=== PATIENT | female | born 1955 | race Caucasian/White ===

== ENCOUNTER 2016-08-02 11:46 | Emergency (ER) | payer SELFPAY ==
[~2016-08-02] VITALS: Wt 59.0 kg
[~2016-08-02 11:46] MED LIST: CALC0.5C4 PO; NAPR-260 PO; NAPR-688 PO; THYR120T PO; THYR60TA PO
== END 2016-08-02 17:50 | disposition left against medical advice (07) ==
LOC: FTE 11:46 → E/R 17:50
DX: Z53.21 Procedure and treatment not carried out due to patient leaving prior to being seen by health care provider (principal)

== ENCOUNTER 2016-08-10 16:16 | Emergency (ER) | payer OTHER ==
[~2016-08-10] VITALS: Ht 154.9 cm; Wt 59.1 kg
[2016-08-10 16:29] VITALS: Ht 154.9 cm; Wt 59.1 kg
[2016-08-10] MEDS ORDERED: CETI10CA PO (18:34)
[2016-08-10] MEDS ORDERED: AZIT250T94 PO (18:34)
[2016-08-10] MEDS ORDERED: THYR120T PO (18:37)
[2016-08-10] MEDS ORDERED: CALC0.5C4 PO (18:37)
[2016-08-10] MEDS ORDERED: BENZ100C70 PO (18:38)
--- NOTE | 2016-08-10 18:45 | ERD ---
ER Documentation Chief Complaint Date/Time DATE: 08/10/16 TIME: 18:40 Chief Complaint COUGH X 2 WEEKS HPI This 60-year-old female presents to the emergency department today complaint of cough for the past 2 weeks. Patient denies any fevers or chills. States her cough is worse at night. States that she had surgery to remove her thyroid and parathyroid. States she also needs a refill on her medications. States she cannot take [id number] cough medications because of her thyroid and parathyroid. ROS All systems reviewed and are negative except as per history of present illness. Medications Home Meds Active Scripts Benzonatate* (Tessalon Perle*) 100 Mg Capsule, 100 MG PO Q8H Y for COUGH for 5 Days, CAP Prov:JONO KEVINC 08/10/16 Thyroid* ([place] Thyroid*) 120 Mg Tablet, 120 MG PO BID for 10 Days, TAB Prov:JONO KEVIN-C 08/10/16 Calcitriol* (Calcitriol*) 0.5 Mcg Capsule, 0.5 MCG PO BID for 10 Days, CAP Prov:JONO KEVINC 08/10/16 Cetirizine Hcl* (Zyrtec*) 10 Mg Capsule, 10 MG PO DAILY, #10 TAB.CHEW Prov:JONO KEVINC 08/10/16 Azithromycin* (Zithromax*) 250 Mg Tablet, 250 MG PO .ZPACK DIRECTED, #6 TAB TAKE 500 MG (2 TABS) THE FIRST DAY THEN 250 MG (1 TAB) DAYS 2-5 Prov:JONO KEVINC 08/10/16 Thyroid* ([place] Thyroid*) 60 Mg Tablet, 120 MG PO DAILY for 30 Days, #60 TAB Prov:DEIDRA CARREON-C 05/06/16 Calcitriol* (Calcitriol*) 0.5 Mcg Capsule, 0.5 MCG PO BID for 30 Days, #60 CAP Prov:DEIDRA CARREON-C 05/06/16 Thyroid* ([place] Thyroid*) 120 Mg Tablet, 120 MG PO DAILY, #30 TAB Prov:RIGO GONZALEZ PA-C 02/26/16 Calcitriol* (Calcitriol*) 0.5 Mcg Capsule, 0.5 MCG PO BID, #60 CAP Prov:RIGO GONZALEZ PA-C 02/26/16 Naproxen* (Naprosyn*) 500 Mg Tablet, 500 MG PO BID Y for PAIN AND/OR INFLAMMATION for 20 Days, #40 TAB 0 Refills Prov:TIFFANYMELANIE PENDLETON 12/29/15 Calcitriol* (Calcitriol*) 0.5 Mcg Capsule, 0.5 MCG PO BID for 20 Days, #40 CAP 0 Refills Prov:TIFFANYMELANIE PA-C 12/29/15 Thyroid* ([place] Thyroid*) 120 Mg Tablet, 120 MG PO DAILY for 20 Days, #20 TAB 0 Refills Prov:TIFFANYMELANIE PA-C 12/29/15 Naproxen* (Naproxen*) 500 Mg Tablet, 500 MG PO BID, #20 TAB Prov:KHOA PIPERUA DO 12/13/15 Thyroid* ([place] Thyroid*) 120 Mg Tablet, 120 MG PO DAILY, #10 TAB Prov:GREENBASILIOANGLE DO 12/13/15 Calcitriol* (Calcitriol*) 0.5 Mcg Capsule, 0.5 MCG PO DAILY, #10 CAP Prov:GREEN,ANGLE DO 12/13/15 Calcitriol* (Calcitriol*) 0.5 Mcg Capsule, 0.5 MCG PO BID, #60 CAP Prov:LEKKOS,APOSTOLOS A. DO 09/08/15 Thyroid* ([place] Thyroid*) 60 Mg Tablet, 60 MG PO BID, #60 TAB Prov:LEKKOS,APOSTOLOS A. DO 09/08/15 Allergies Allergies: Coded Allergies: phenytoin (Verified Allergy, Unknown, 09/08/15) PMhx/Soc History of Surgery: Yes (thyroidectomy, parathyroid removed as well) Anesthesia Reaction: No Hx Neurological Disorder: Yes (hx SEIZURE) Hx Cardiac Disorders: No Hx Psychiatric Problems: No Hx Miscellaneous Medical Probl: Yes (hypothyroidism) Hx Alcohol Use: No Hx Substance Use: No Hx Tobacco Use: No Smoking Status: Never smoker Physical Exam Vitals Vital Signs Date Time Temp Pulse Resp B/P Pulse Ox O2 Delivery O2 Flow Rate FiO2 08/10/16 16:29 98.1 74 19 118/79 100 Physical Exam Const: talkative, NAD Head: Atraumatic Eyes: Normal Conjunctiva ENT: Ears TMs normal. Nose no drainage. Throat no erythema no exudate Neck: Full range of motion..~ No meningismus. Resp: Clear to auscultation bilaterally no absent breath sounds. No wheezing. Cardio: Regular rate and rhythm, no murmurs Skin: No petechiae or rashes Neur: Awake and alert Psych: Normal Mood and Affect Procedures/MDM This is a 60-year-old female who presents to the emergency department today complaining of cough for the past 2 weeks. Given the duration of symptoms I did offer to obtain a chest x-ray for the patient however patient refused. Patient indicated that she just wanted medication that she also wanted a medication refill. Patient indicated she has recently changed her primary care physician again. Patient has been seen here multiple times for medication refill and I have explained to her that this is not the place to get her medication refilled as she has chronic medical problems. Patient has not been here for this problem since April. Patient is afebrile and otherwise well- appearing. Her oxygen saturation is 100% I do have low suspicion for pneumonia , PE, abscess, pleural effusion or pneumothorax however given patient's refusal for chest x-ray I will give the patient a prescription for azithromycin to treat possible pneumonia versus bronchitis versus viral URI Patient was given a prescription for Zyrtec, azithromycin, [place] Thyroid and calcitriol At this time the patient is stable for discharge and outpatient management. Patient should follow up with their PCP in the next 1-2 days. They may return to the emergency department sooner for any persistent or worsening of symptoms. Patient understood and agreed with the plan. . Departure Diagnosis: Primary Impression: Cough Additional Impression: Medication refill Condition: Fair Patient Instructions: Cough, Chronic, Uncertain Cause, (Adult) Referrals: ALYSHA SMITH (PCP) Additional Instructions: Call your primary care doctor TOMORROW for an appointment during the next 1-2 days.See the doctor sooner or return here if your condition worsens before your appointment time. Take antibiotics as prescribed for cough Take Tessalon, Zyrtec for cough Take your thyroid and parathyroid medications. Check with pharmacist to make sure that medications prescribed are okay with thyroid and parathyroid medication JONO KEVIN PA-C Aug 10, 2016 18:45
[2016-08-10 19:03] VITALS: BP 115/75; PULSE 75; RESP 16; TEMP 98.1
== END 2016-08-10 19:05 | disposition home or self-care (01) ==
LOC: FTE 16:16
DX: R05 Cough (principal); E03.9 Hypothyroidism, unspecified
CPT/HCPCS: 99284

== ENCOUNTER 2016-09-13 10:44 | Emergency (ER) | payer OTHER ==
[~2016-09-13] VITALS: Ht 154.9 cm; Wt 57.7 kg
[~2016-09-13 10:44] MED LIST changes: +AZIT250T94 PO; +BENZ100C70 PO; +CETI10CA PO; +CYCL-319 PO; +THY90 PO
[2016-09-13 10:49] VITALS: Ht 154.9 cm; Wt 57.7 kg
[2016-09-13] MEDS ORDERED: CALC0.5C4 PO (12:53)
[2016-09-13] MEDS ORDERED: THYR120T PO (12:53)
--- NOTE | 2016-09-13 15:38 | ERD ---
ER Documentation Chief Complaint Date/Time DATE: 09/13/16 TIME: 15:36 Chief Complaint MEDICATION REFILL - THYROID MEDICATIONS HPI Patient is a 52-year-old female with thyroid disease who presents for a refill for her thyroid medications. She said that she ran out 3 days ago. She ran out of calcitriol and [place] Thyroid. The patient has no complaints. She said that she ran out 3 days ago and needs a prescription for these. She said that she is in between doctors. Her new doctor is Dr. Lagunas. Upon review of old medical records she has multiple visits to the ER with similar type complaints. ROS All systems reviewed and are negative except as per history of present illness. Medications Home Meds Active Scripts Thyroid* ([place] Thyroid*) 120 Mg Tablet, 120 MG PO DAILY for 14 Days, TAB Prov:MIGUEL ÁNGEL PITTS MD 09/13/16 Calcitriol* (Calcitriol*) 0.5 Mcg Capsule, 0.5 MCG PO BID for 14 Days, CAP Prov:MIGUEL ÁNGEL PITTS MD 09/13/16 Benzonatate* (Tessalon Perle*) 100 Mg Capsule, 100 MG PO Q8H Y for COUGH for 5 Days, CAP Prov:JONO KEVINC 08/10/16 Thyroid* ([place] Thyroid*) 120 Mg Tablet, 120 MG PO BID for 10 Days, TAB Prov:JONO KEVINC 08/10/16 Calcitriol* (Calcitriol*) 0.5 Mcg Capsule, 0.5 MCG PO BID for 10 Days, CAP Prov:PROJONO BASSC 08/10/16 Cetirizine Hcl* (Zyrtec*) 10 Mg Capsule, 10 MG PO DAILY, #10 TAB.CHEW Prov:JONO KEVINC 08/10/16 Azithromycin* (Zithromax*) 250 Mg Tablet, 250 MG PO .AYO DIRECTED, #6 TAB TAKE 500 MG (2 TABS) THE FIRST DAY THEN 250 MG (1 TAB) DAYS 2-5 Prov:JONO KEVINC 08/10/16 Thyroid* ([place] Thyroid*) 60 Mg Tablet, 120 MG PO DAILY for 30 Days, #60 TAB Prov:DEIDRA CARREONC 05/06/16 Calcitriol* (Calcitriol*) 0.5 Mcg Capsule, 0.5 MCG PO BID for 30 Days, #60 CAP Prov:DEIDRA CARREON PA-C 05/06/16 Thyroid* ([place] Thyroid*) 120 Mg Tablet, 120 MG PO DAILY, #30 TAB Prov:RIGO GONZALEZC 02/26/16 Calcitriol* (Calcitriol*) 0.5 Mcg Capsule, 0.5 MCG PO BID, #60 CAP Prov:RIGO GONZALEZ 02/26/16 Naproxen* (Naprosyn*) 500 Mg Tablet, 500 MG PO BID Y for PAIN AND/OR INFLAMMATION for 20 Days, #40 TAB 0 Refills Prov:MELANIE ALLEN PA-C 12/29/15 Calcitriol* (Calcitriol*) 0.5 Mcg Capsule, 0.5 MCG PO BID for 20 Days, #40 CAP 0 Refills Prov:MELANIE ALLEN PA-C 12/29/15 Thyroid* ([place] Thyroid*) 120 Mg Tablet, 120 MG PO DAILY for 20 Days, #20 TAB 0 Refills Prov:TIFFANYMELANIE PA-C 12/29/15 Naproxen* (Naproxen*) 500 Mg Tablet, 500 MG PO BID, #20 TAB Prov:VERONIQUEANGLE DO 12/13/15 Thyroid* ([place] Thyroid*) 120 Mg Tablet, 120 MG PO DAILY, #10 TAB Prov:GREENANGLE DO 12/13/15 Calcitriol* (Calcitriol*) 0.5 Mcg Capsule, 0.5 MCG PO DAILY, #10 CAP Prov:GREENANGLE DO 12/13/15 Calcitriol* (Calcitriol*) 0.5 Mcg Capsule, 0.5 MCG PO BID, #60 CAP Prov:LEKKOS,APOSTOLOS A. DO 09/08/15 Thyroid* ([place] Thyroid*) 60 Mg Tablet, 60 MG PO BID, #60 TAB Prov:LEKKOS,APOSTOLOS A. DO 09/08/15 Allergies Allergies: Coded Allergies: phenytoin (Verified Allergy, Unknown, 09/08/15) PMhx/Soc History of Surgery: Yes (thyroidectomy, parathyroid removed as well) Anesthesia Reaction: No Hx Neurological Disorder: Yes (hx SEIZURE) Hx Cardiac Disorders: No Hx Psychiatric Problems: No Hx Miscellaneous Medical Probl: Yes (hypothyroidism) Hx Alcohol Use: No Hx Substance Use: No Hx Tobacco Use: No Smoking Status: Never smoker FmHx Family History: diabetes Physical Exam Vitals Vital Signs Date Time Temp Pulse Resp B/P Pulse Ox O2 Delivery O2 Flow Rate FiO2 09/13/16 10:49 98.2 83 19 127/76 97 Physical Exam Const: No acute distress Head: Atraumatic Eyes: Normal Conjunctiva ENT: Normal External Ears, Nose and Mouth. Neck: Full range of motion..~ No meningismus. Resp: Clear to auscultation bilaterally Cardio: Regular rate and rhythm, no murmurs Abd: Soft, non tender, non distended. Normal bowel sounds Skin: No petechiae or rashes Back: No midline or flank tenderness Ext: No cyanosis, or edema Neur: Awake and alert Psych: Normal Mood and Affect Procedures/MDM Patient is a 60-year-old female with thyroid disease who presents for medication refill of her thyroid medications. I told her that she cannot continue to come to the ER to get thyroid medication refills. She has had multiple visits to the emergency department for similar. I told her that I will give her 2 weeks of her medications appropriate for any further medication she will need to follow-up with Dr. Lagunas her primary doctor. She can return for any worsening symptoms. I believe outpatient management is appropriate. Departure Diagnosis: Primary Impression: Encounter for medication refill Condition: Fair Patient Instructions: Taking Medication Safely Referrals: ALYSHA LAGUNAS (PCP) Additional Instructions: Call your primary care doctor TOMORROW for an appointment during the next 1 WEEK.Tell the paralegal legal secretary that you were referred from this facility.See the doctor sooner or return here if your condition worsens before your appointment time. MIGUEL ÁNGEL PITTS MD Sep 13, 2016 15:38
== END 2016-09-13 13:15 | disposition home or self-care (01) ==
LOC: FTE 10:44
DX: Z76.0 Encounter for issue of repeat prescription (principal); E03.9 Hypothyroidism, unspecified
CPT/HCPCS: 99281

== ENCOUNTER 2016-12-29 15:37 | Emergency (ER) | payer OTHER ==
[~2016-12-29] VITALS: Ht 157.5 cm; Wt 89.0 kg
[~2016-12-29 15:37] MED LIST changes: -CYCL-319 PO; -THY90 PO
[2016-12-29 15:39] VITALS: Ht 157.5 cm; Wt 89.0 kg
[2016-12-29] MEDS ORDERED: AMOX1TAB10 PO (16:45)
--- NOTE | 2016-12-30 00:19 | ERD ---
ER Documentation Chief Complaint Date/Time DATE: 12/30/16 TIME: 00:18 Chief Complaint RIGHT UPPER GUM SWELLING HPI 61-year-old female presents to the emergency department complaining of swelling and pain on her right upper molar for the past couple days. Patient states that she has not been to the dentist in the very long time. She rates the pain moderate in severity. She denies any fevers. Denies any facial swelling ROS All systems reviewed and are negative except as per history of present illness. Medications Home Meds Active Scripts Amoxicillin/Potassium Clav (Amox-Clav 875-125 mg Tablet) 875-125 mg Tab, 1 TAB PO BID for 10 Days, #20 TAB Prov:TEOFILO JOHN PA-C 12/29/16 Thyroid* ([place] Thyroid*) 120 Mg Tablet, 120 MG PO DAILY for 14 Days, TAB Prov:MIGUEL ÁNGEL PITTS MD 09/13/16 Calcitriol* (Calcitriol*) 0.5 Mcg Capsule, 0.5 MCG PO BID for 14 Days, CAP Prov:MIGUEL ÁNGEL PITTS MD 09/13/16 Benzonatate* (Tessalon Perle*) 100 Mg Capsule, 100 MG PO Q8H Y for COUGH for 5 Days, CAP Prov:JONO KEVIN PA-C 08/10/16 Thyroid* ([place] Thyroid*) 120 Mg Tablet, 120 MG PO BID for 10 Days, TAB Prov:JONO KEVINC 08/10/16 Calcitriol* (Calcitriol*) 0.5 Mcg Capsule, 0.5 MCG PO BID for 10 Days, CAP Prov:JONO KEVINC 08/10/16 Cetirizine Hcl* (Zyrtec*) 10 Mg Capsule, 10 MG PO DAILY, #10 TAB.CHEW Prov:JONO KEVINC 08/10/16 Azithromycin* (Zithromax*) 250 Mg Tablet, 250 MG PO .AYO DIRECTED, #6 TAB TAKE 500 MG (2 TABS) THE FIRST DAY THEN 250 MG (1 TAB) DAYS 2-5 Prov:JONO KEVINC 08/10/16 Thyroid* ([place] Thyroid*) 60 Mg Tablet, 120 MG PO DAILY for 30 Days, #60 TAB Prov:DEIDRA CARREON 05/06/16 Calcitriol* (Calcitriol*) 0.5 Mcg Capsule, 0.5 MCG PO BID for 30 Days, #60 CAP Prov:DEIDRA CARREONC 05/06/16 Thyroid* ([place] Thyroid*) 120 Mg Tablet, 120 MG PO DAILY, #30 TAB Prov:RIGO GONZALEZ 02/26/16 Calcitriol* (Calcitriol*) 0.5 Mcg Capsule, 0.5 MCG PO BID, #60 CAP Prov:RIGO GONZALEZ 02/26/16 Naproxen* (Naprosyn*) 500 Mg Tablet, 500 MG PO BID Y for PAIN AND/OR INFLAMMATION for 20 Days, #40 TAB 0 Refills Prov:TIFFANYMELANIE 12/29/15 Calcitriol* (Calcitriol*) 0.5 Mcg Capsule, 0.5 MCG PO BID for 20 Days, #40 CAP 0 Refills Prov:TIFFANYMELANIE 12/29/15 Thyroid* ([place] Thyroid*) 120 Mg Tablet, 120 MG PO DAILY for 20 Days, #20 TAB 0 Refills Prov:TIFFANYMELANIE 12/29/15 Naproxen* (Naproxen*) 500 Mg Tablet, 500 MG PO BID, #20 TAB Prov:ANGLE PIPER DO 12/13/15 Thyroid* ([place] Thyroid*) 120 Mg Tablet, 120 MG PO DAILY, #10 TAB Prov:GREENANGLE DO 12/13/15 Calcitriol* (Calcitriol*) 0.5 Mcg Capsule, 0.5 MCG PO DAILY, #10 CAP Prov:GREEN,ANGLE DO 12/13/15 Calcitriol* (Calcitriol*) 0.5 Mcg Capsule, 0.5 MCG PO BID, #60 CAP Prov:LEKKOS,APOSTOLOS A. DO 09/08/15 Thyroid* ([place] Thyroid*) 60 Mg Tablet, 60 MG PO BID, #60 TAB Prov:LEKKOS,APOSTOLOS A. DO 09/08/15 Allergies Allergies: Coded Allergies: phenytoin (Verified Allergy, Unknown, 12/29/16) PMhx/Soc History of Surgery: Yes (thyroidectomy, parathyroid removed as well) Anesthesia Reaction: No Hx Neurological Disorder: Yes (hx SEIZURE) Hx Cardiac Disorders: No Hx Psychiatric Problems: No Hx Miscellaneous Medical Probl: Yes (hypothyroidism) Hx Alcohol Use: No Hx Substance Use: No Hx Tobacco Use: No Smoking Status: Never smoker Physical Exam Vitals Vital Signs Date Time Temp Pulse Resp B/P Pulse Ox O2 Delivery O2 Flow Rate FiO2 12/29/16 15:39 98.2 99 18 133/64 99 Physical Exam Const: WD/WN Head: Atraumatic Eyes: Normal Conjunctiva ENT: right upper gingival swelling and pain, no abscess noted Neck: Full range of motion..~ No meningismus. Resp: Clear to auscultation bilaterally Cardio: Regular rate and rhythm, no murmurs Abd: Soft, non tender, non distended. Normal bowel sounds Skin: No petechiae or rashes Back: No midline or flank tenderness Ext: No cyanosis, or edema Neur: Awake and alert Psych: Normal Mood and Affect Procedures/MDM This is a 61-year-old female presenting to the emergency department with pain in the right upper molar, differentials include but not limited to dental infection, abscess. There is no evidence of facial cellulitis or deep space infection. Patient is stable to be discharged home to follow-up with dentist. Prescription for Augmentin was provided. Discussed return the ER for any worsening sinus nose. She understands and agrees with plan Departure Diagnosis: Primary Impression: Pain, dental Condition: Stable Patient Instructions: Dental Abscess, Dental Pain Referrals: [facility] ([facility]) Additional Instructions: FOLLOW UP WITH YOUR PRIMARY CARE PHYSICIAN TOMORROW.Return to this facility if you are not improving as expected. Take all medicines as directed. TEOFILO JOHN PA-C Dec 30, 2016 00:19
== END 2016-12-29 16:55 | disposition home or self-care (01) ==
LOC: FTE 15:37
DX: K08.89 Other specified disorders of teeth and supporting structures (principal); E03.9 Hypothyroidism, unspecified
CPT/HCPCS: 99283

== ENCOUNTER 2018-01-04 14:27 | Emergency (ER) | END 2018-01-04 17:53 | disposition left against medical advice (07) ==

== ENCOUNTER 2018-01-05 17:04 | Emergency (ER) | END 2018-01-05 20:19 | disposition left against medical advice (07) ==

== ENCOUNTER 2018-04-29 09:27 | Emergency (ER) | END 2018-04-29 13:27 | disposition home or self-care (01) ==